=== PATIENT | male | born 1965 | race American Indian/Alaskan Native ===

== ENCOUNTER 2019-04-15 16:31 | Emergency (ER) | payer SELFPAY ==
--- NOTE | 2019-04-15 17:06 | Emergency Department Report ---
Blank Doc - Documentation Documentation: This is a 53-year-old male that presents with HTN. [facility]. Denies any headache or complaints. This initial assessment/diagnostic orders/clinical plan/treatment(s) is/are subject to change based on patient's health status, clinical progression and re- assessment by fellow clinical providers in the ED. Further treatment and workup at subsequent clinical providers discretion. Patient/guardians urged not to elope from the ED as their condition may be serious if not clinically assessed and managed. Initial orders include: 1- Patient sent to [facility] for further evaluation and treatment 2- labs
[2019-04-15 17:55] LABS: Basophils % (Auto) 0.7 % (0.0-1.8); Eosinophils # (Auto) 0.1 K/mm3 (0.0-0.4); Eosinophils % (Auto) 1.7 % (0.0-4.3); Hematocrit 40.2 % (35.5-45.6); Hemoglobin 13.3 gm/dl (11.8-15.2); Lymphocytes # (Auto) 1.8 K/mm3 (1.2-5.4); Lymphocytes % (Auto) 36.3 % (13.4-35.0); Mean Corpuscular HGB Conc 33 % (32-34); Mean Corpuscular Volume 89 fl (84-94); Monocytes # (Auto) 0.5 K/mm3 (0.0-0.8); Monocytes % (Auto) 10.4 % (0.0-7.3); Platelet Count 214 K/mm3 (140-440); Red Blood Count 4.52 M/mm3 (3.65-5.03); Red Cell Distribution Width 13.9 % (13.2-15.2)
[2019-04-15 18:14] LABS: BUN/Creatinine Ratio 9; Blood Urea Nitrogen 11 mg/dL (9-20); Calcium 9.1 mg/dL (8.4-10.2); Hemolysis Index 19
[2019-04-15] MEDS ORDERED: ZESTRIL PO ONE (20:05)
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
[2019-04-15 20:43] VITALS: BP 188/97
== END 2019-04-15 20:51 | disposition home or self-care (01) ==
LOC: ED 16:31
DX: I16.0 Hypertensive urgency (principal)
CPT/HCPCS: 36415; 80048; 85025; 99283

== ENCOUNTER 2020-12-22 13:01 | Emergency (ER) | payer SELFPAY ==
[2020-12-22 13:45] VITALS: BP 184/98
--- NOTE | 2020-12-22 15:34 | XRay Report ---
BILATERAL FEET 6 VIEWS INDICATION / CLINICAL INFORMATION: MAIN. COMPARISON: None available. FINDINGS: Small Achilles spurs bilaterally. No other significant skeletal abnormality Signer Name: Mio Guevara MD FACDougie Signed: 12/22/2020 3:29 PM Workstation Name: [id number]
--- NOTE | 2020-12-22 15:34 | XRay Report ---
BILATERAL ANKLES 6 VIEWS INDICATION / CLINICAL INFORMATION: MAIN. COMPARISON: None available. FINDINGS: Mild lateral soft tissue swelling bilaterally. No other significant skeletal abnormality Signer Name: Mio Guevara MD FACDougie Signed: 12/22/2020 3:30 PM Workstation Name: [id number]
--- NOTE | 2020-12-22 15:35 | XRay Report ---
LEFT KNEE 3 VIEWS INDICATION / CLINICAL INFORMATION: MAIN. COMPARISON: None available. FINDINGS: No significant skeletal abnormality Signer Name: Mio Guevara MD FACR Signed: 12/22/2020 3:30 PM Workstation Name: [id number]
--- NOTE | 2020-12-22 15:37 | XRay Report ---
THORACIC SPINE 3 VIEWS INDICATION / CLINICAL INFORMATION: MAIN. COMPARISON: None available. FINDINGS: VERTEBRAE: No acute fracture. No significant malalignment. DISC SPACES / FACET JOINTS:No significant abnormality. PARASPINAL SOFT TISSUES:No significant abnormality. ADDITIONAL FINDINGS: None. Signer Name: Kaden George MD Signed: 12/22/2020 3:32 PM Workstation Name: [id number]
--- NOTE | 2020-12-22 16:45 | Emergency Department Report ---
ED Fall HPI - General Chief Complaint: Extremity Injury, Lower Stated Complaint: RT/LFT ANKLE/RT KNEE Time Seen by Provider: 12/22/20 14:11 Source: patient Mode of arrival: Ambulatory Limitations: No Limitations - History of Present Illness Initial Comments: This is a 55-year-old male nontoxic, well nourished in appearance, no acute signs of distress presents to the ED with c/o of bilateral ankle/feet and left knee pain status post fall that occurred 1 week ago. Patient stated that he was on a ladder about 2 feet and tripped and landed to bilateral feet and left knee. Patient stated also had lower back pain but currently denies any back pain. Patient denies any other trauma. Patient denies any loss of conscious. Patient denies any head trauma or injuries. Denies any neck pain. Patient denies any numbness, tingling, fever, chills, nausea, vomiting, chest pain, shortness of breath, headache, stiff neck. Patient denies any joint swelling or joint redness. Patient denies decreased range of motion. Patient stated has decreased gait due to pain. Patient denies any allergies. MD Complaint: fall -: days(s) Loss of Consciousness: none Prolonged Down Time?: no Symptoms Prior to Fall: none Location: back Location - Extremities: Left: Knee, Ankle, Foot, Right: Ankle, Foot Severity: mild Severity scale (0 -10): 8 Quality: aching Context: tripped/slipped Associated Symptoms: denies. denies: headache, neck pain, numbness, weakness, chest paint, shortness of breath, abdominal pain, hematuria, unable to walk, lightheaded, vertigo, confusion - Related Data Previous Rx's Medication Instructions Recorded Last Taken Type amLODIPine 5 mg PO DAILY #30 tab 05/17/16 Unknown Rx Lisinopril/Hydrochlorothiazide 1 each PO DAILY 30 Days #30 tablet 04/15/19 Unknown Rx [Zestoretic 10-12.5 mg Tablet] Allergies Allergy/AdvReac Type Severity Reaction Status Date / Time No Known Allergies Allergy Unverified 05/16/16 10:13 ED Review of Systems ROS: Stated complaint: RT/LFT ANKLE/RT KNEE Other details as noted in HPI Comment: All other systems reviewed and negative Constitutional: denies: chills, fever Eyes: denies: eye pain, eye discharge, vision change ENT: denies: ear pain, throat pain Respiratory: denies: cough, shortness of breath, wheezing Cardiovascular: denies: chest pain, palpitations Endocrine: no symptoms reported Gastrointestinal: denies: abdominal pain, nausea, diarrhea Genitourinary: denies: urgency, dysuria Musculoskeletal: back pain. denies: joint swelling, arthralgia Skin: denies: rash, lesions Neurological: denies: headache, weakness, paresthesias Psychiatric: denies: anxiety, depression Hematological/Lymphatic: denies: easy bleeding, easy bruising ED Past Medical Hx - Past Medical History Hx Hypertension: Yes - Surgical History Past Surgical History?: No - Social History Smoking Status: Never Smoker Substance Use Type: None - Medications Home Medications: Home Medications Medication Instructions Recorded Confirmed Last Taken Type amLODIPine 5 mg PO DAILY #30 tab 05/17/16 Unknown Rx Lisinopril/Hydrochlorothiazide 1 each PO DAILY 30 Days #30 tablet 04/15/19 Unknown Rx [Zestoretic 10-12.5 mg Tablet] ED Physical Exam - General Limitations: No Limitations General appearance: alert, in no apparent distress - Head Head exam: Present: atraumatic, normocephalic - Eye Eye exam: Present: normal appearance, PERRL, EOMI - Neck Neck exam: Present: normal inspection, full ROM. Absent: tenderness, meningismus, lymphadenopathy - Respiratory Respiratory exam: Absent: respiratory distress - Cardiovascular Cardiovascular Exam: Present: regular rate - GI/Abdominal GI/Abdominal exam: Present: soft. Absent: distended, tenderness, guarding, rebound, rigid - Extremities Exam Extremities exam: Present: full ROM, tenderness, normal capillary refill. Absent: joint swelling, calf tenderness - Expanded Lower Extremity Exam Left Hip exam: Present: normal inspection (Bilateral exam), full ROM (Bilateral exam). Absent: tenderness (Bilateral exam), swelling (Bilateral exam) Upper Leg exam: Present: normal inspection (Bilateral exam), full ROM (Bilateral exam). Absent: tenderness (Bilateral exam), swelling (Bilateral exam) Knee exam: Present: normal inspection (Bilateral exam), full ROM (Bilateral exam), tenderness (left knee), full knee extension (Bilateral exam). Absent: swelling (Bilateral exam), abrasion (Bilateral exam), laceration (Bilateral exam), ecchymosis (Bilateral exam), deformity (Bilateral exam), crepidus (Bilateral exam), dislocation (Bilateral exam), erythema (Bilateral exam), effusion (Bilateral exam), pain w/ pronation/supination (Bilateral exam), posterior draw sign (Bilateral exam), pain/laxity with valgus (Bilateral exam), pain/laxity with varus (Bilateral exam) Lower Leg exam: Present: normal inspection (Bilateral exam), full ROM (Bilateral exam). Absent: tenderness (Bilateral exam), swelling (Bilateral exam) Ankle exam: Present: full ROM (Bilateral exam), tenderness (Bilateral exam), swelling (Bilateral exam), ecchymosis (Bilateral exam). Absent: abrasion (Bilateral exam), laceration (Bilateral exam), deformity (Bilateral exam), crepidus (Bilateral exam), dislocation (Bilateral exam), erythema (Bilateral exam), anterior draw sign (Bilateral exam) Foot/Toe exam: Present: full ROM (Bilateral exam), tenderness (Bilateral exam), swelling (Bilateral exam). Absent: abrasion (Bilateral exam), laceration (B ilateral exam), ecchymosis (Bilateral exam), deformity (Bilateral exam), crepidus (Bilateral exam), dislocation (Bilateral exam), erythema (Bilateral exam), amputation (Bilateral exam), puncture wound (Bilateral exam), foreign body (Bilateral exam), calcaneal tenderness (Bilateral exam), tenderness at base of 5th metatarsal (Bilateral exam), nail avulsion (Bilateral exam), subungual hematoma (Bilateral exam) Neuro vascular tendon exam: Present: no vascular compromise (Bilateral exam) Gait: Positive: observed and limited by pain - Back Exam Back exam: Present: normal inspection, full ROM, paraspinal tenderness (lumbar paraspinal). Absent: tenderness, CVA tenderness (R), CVA tenderness (L), muscle spasm, vertebral tenderness, rash noted - Neurological Exam Neurological exam: Present: alert, oriented X3, normal gait - Psychiatric Psychiatric exam: Present: normal affect, normal mood - Skin Skin exam: Present: warm, dry, intact, normal color. Absent: rash ED Course Vital Signs 12/22/20 13:43 Temperature 98.2 F Pulse Rate 54 L Respiratory 18 Rate Blood Pressure 184/98 O2 Sat by Pulse 96 Oximetry - Reevaluation(s) Reevaluation #1: 12/22/20 16:45 At this time patient did not answer lumbar x-ray. Patient is not in the waiting room. Patient has been called at [phone] and I spoke to the patient which he stated to me that he left because he had to pick somebody up. I instructed patient that we are still pending for your lumbar x-ray to be done and it is very important that to come back to the emergency room for further evaluation and treatment. Patient stated he is unable to at this current moment but will come shortly. Patient was educated my concerns and states understands. ED Medical Decision Making - Radiology Data Referring Physician: MIO BRUSH Patient Name: ALLISON CRANE Date of : 1965 Sex: Male Report Date: 2020-12-22 Report Status: Finalized [address] [address] XRay Report Signed Patient: ALLISON CRANE MR#: [id number] 26 : 1965 Acct:[id number] Age/Sex: 55 / M ADM Date: 12/22/20 Loc: ED Attending Dr: Ordering Physician: MIO BRUSH NP Date of Service: 12/22/20 Procedure(s): XR knee 3V LT Accession Number(s): [id number] cc: MIO BRUSH NP Fluoro Time In Minutes: LEFT KNEE 3 VIEWS INDICATION / CLINICAL INFORMATION: MAIN. COMPARISON: None available. FINDINGS: No significant skeletal abnormality Signer Name: Mio Guevara MD FACR Signed: 12/22/2020 3:30 PM Workstation Name: [id number] Transcribed By: MS Dictated By: Mio Guevara MD Electronically Authenticated By: Mio Guevara MD Signed Date/Time: 12/22/20 1530 DD/ 1530 TD/TT: Referring Physician: MIO BRUSH Patient Name: ALLISON CRANE Date of : 1965 Sex: Male Report Date: 2020-12-22 Report Status: Finalized [address] [address] XRay Report Signed Patient: ALLISON CRANE MR#: [id number] [birth year] : 1965 Acct:[id number] Age/Sex: 55 / M ADM Date: 12/22/20 Loc: ED Attending Dr: Ordering Physician: MIO BRUSH NP Date of Service: 12/22/20 Procedure(s): XR spine thoracic 3V Accession Number(s): [id number] cc: MIO BRUSH NP Fluoro Time In Minutes: THORACIC SPINE 3 VIEWS INDICATION / CLINICAL INFORMATION: MAIN. COMPARISON: None available. FINDINGS: VERTEBRAE: No acute fracture. No significant malalignment. DISC SPACES / FACET JOINTS:No significant abnormality. PARASPINAL SOFT TISSUES:No significant abnormality. ADDITIONAL FINDINGS: None. Signer Name: Armen George MD Signed: 12/22/2020 3:32 PM Workstation Name: [id number] Transcribed By: Dictated By: ARMEN GEORGE III Electronically Authenticated By: ARMEN GEORGE III Signed Date/Time: 12/22/20 153 DD/ 30 TD/TT: Referring Physician: MIO BRUSH Patient Name: ALLISON CRANE Date of : 1965 Sex: Male Report Date: 2020-12-22 Report Status: Finalized [address] [address] XRay Report Signed Patient: ALLISON CRANE MR#: [id number] [birth year] : 1965 Acct:[id number] Age/Sex: 55 / M ADM Date: 12/22/20 Loc: ED Attending Dr: Ordering Physician: MIO BRUSH NP Date of Service: 12/22/20 Procedure(s): XR ankle BILAT 3+V Accession Number(s): [id number] cc: MIO BRUSH NP Fluoro Time In Minutes: BILATERAL ANKLES 6 VIEWS INDICATION / CLINICAL INFORMATION: MAIN. COMPARISON: None available. FINDINGS: Mild lateral soft tissue swelling bilat erally. No other significant skeletal abnormality Signer Name: Mio Guevara MD FACR Signed: 12/22/2020 3:30 PM Workstation Name: [id number] Transcribed By: MS Dictated By: Mio Guevara MD Electronically Authenticated By: Mio Guevara MD Signed Date/Time: 12/22/20 153 DD/ 28 TD/TT: Referring Physician: MIO BRUSH Patient Name: ALLISON CRANE Date of : 1965 Sex: Male Report Date: 2020-12-22 Report Status: Finalized [facility] [address] [place] [address] XRay Report Signed Patient: ALLISON CRANE MR#: [id number] [birth year] : 1965 Acct:[id number] Age/Sex: 55 / M ADM Date: 12/22/20 Loc: ED Attending Dr: Ordering Physician: MIO BRUSH NP Date of Service: 12/22/20 Procedure(s): XR foot BILAT 3+V Accession Number(s): [id number] cc: MIO BRUSH NP Fluoro Time In Minutes: BILATERAL FEET 6 VIEWS INDICATION / CLINICAL INFORMATION: MAIN. COMPARISON: None available. FINDINGS: Small Achilles spurs bilaterally. No other significant skeletal abnormality Signer Name: Mio Guevara MD FACR Signed: 12/22/2020 3:29 PM Workstation Name: [id number] Transcribed By: MS Dictated By: Mio Guevara MD Electronically Authenticated By: Mio Guevara MD Signed Date/Time: 12/22/201528 DD/ 28 TD/TT: - Medical Decision Making 55-year-old male that presents with a fall. Patient is stable and was examined by me. Patient left without getting x-ray results and did not finish imaging studies of the lumbar spine. Patient was contacted and educated of my concerns and to return to emergency room soon as possible further evaluation and tr eatment. Patient understood and stated will come later. I was unable to reevaluate the patient. 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 Patient ELOPED. Critical care attestation.: If time is entered above; I have spent that time in minutes in the direct care of this critically ill patient, excluding procedure time. ED Disposition Clinical Impression: Thoracic spine pain Fall Qualifiers: Encounter type: initial encounter Qualified Code(s): W19.XXXA - Unspecified fall, initial encounter Left ankle strain Qualifiers: Encounter type: initial encounter Qualified Code(s): S96.912A - Strain of unspecified muscle and tendon at ankle and foot level, left foot, initial encounter Right ankle strain Qualifiers: Encounter type: initial encounter Qualified Code(s): S96.911A - Strain of unspecified muscle and tendon at ankle and foot level, right foot, initial encounter Strain of foot, right Qualifiers: Encounter type: initial encounter Qualified Code(s): S96.911A - Strain of unspecified muscle and tendon at ankle and foot level, right foot, initial encounter Strain of foot, left Qualifiers: Encounter type: initial encounter Qualified Code(s): S96.912A - Strain of unspecified muscle and tendon at ankle and foot level, left foot, initial encounter Disposition: Z-07 ELOPED Is pt being admited?: No Condition: Undetermined Instructions: Chest Pain (ED)
== END 2020-12-22 17:00 | disposition left against medical advice (07) ==
LOC: ED 13:01
DX: S96.912A Strain of unspecified muscle and tendon at ankle and foot level, left foot, initial encounter (principal); S96.911A Strain of unspecified muscle and tendon at ankle and foot level, right foot, initial encounter; M54.6 Pain in thoracic spine; I10 Essential (primary) hypertension; Z79.899 Other long term (current) drug therapy; W11.XXXA Fall on and from ladder, initial encounter; Y93.89 Activity, other specified; Y92.89 Other specified places as the place of occurrence of the external cause; Y99.8 Other external cause status
CPT/HCPCS: 72072; 99282